=== PATIENT | male | born 1950 | race Hispanic/Latino ===

== ENCOUNTER 2017-03-07 10:51 | Day surgery (SDC) | payer MEDICARE, OTHER ==
[2017-03-07 11:03] VITALS: BMI 31.1
[2017-03-07 11:27] LABS: BASO % 0.5 % (0.0-2.0); EOS # 0.2 K/uL (0.0-0.7); EOS % 1.8 % (0.0-4.0); HEMATOCRIT 43.1 % (35.0-51.0); LYMPH # 1.7 K/uL (1.0-4.3); MEAN CELL VOLUME 101.8 fL (80.0-94.0); MEAN CORPUSCULAR HEMOGLOBIN 33.8 pg (27.0-31.0); MEAN CORPUSCULAR HGB CONC 33.2 g/dL (33.0-37.0); MEAN PLATELET VOLUME 8.3 fL (7.2-11.7); MONO # 0.7 K/uL (0.0-0.8); MONO % 7.1 % (0.0-10.0); RED CELL DISTRIBUTION WIDTH 16.1 % (11.5-14.5); WHITE BLOOD COUNT 9.9 K/uL (4.8-10.8)
[2017-03-07 11:32] LABS: CHLORIDE 103 mmol/L (98-107)
[2017-03-07 11:33] LABS: POTASSIUM 3.6 mmol/L (3.6-5.2); SODIUM 136 mmol/L (132-148)
[2017-03-07 11:35] LABS: GFR AFRICAN-AMERICAN > 60
[2017-03-07 11:36] LABS: BLOOD UREA NITROGEN 9 mg/dL (9-20); CALCIUM 8.6 mg/dl (8.6-10.4); CARBON DIOXIDE 24 mmol/L (22-30); GLUCOSE,RANDOM 100 mg/dL (75-110)
[2017-03-07 11:52] VITALS: RESP 18
[2017-03-07] MEDS ORDERED: Propofol 10 mg/ml Inj (20 ML) ONE (13:50)
[2017-03-07] MEDS ORDERED: Midazolam 2 MG/2 ML VIAL ONE (14:00)
[2017-03-07] MEDS ORDERED: Lidocaine 2% Inj (20ml) ONE (14:05)
--- NOTE | 2017-03-07 14:43 | CP.PCM.PN ---
Subjective - Date & Time of Evaluation Date of Evaluation: 03/07/17 Time of Evaluation: 14:43 - Subjective Subjective: procedure cancelled equipment issues Objective - Vital Signs/Intake and Output Vital Signs (last 24 hours): Temp Pulse Resp BP Pulse Ox 98.5 F 63 18 165/85 H 98 03/07/17 11:26 03/07/17 11:26 03/07/17 11:26 03/07/17 11:26 03/07/17 11:26 - Labs Labs: 03/07/17 11:21 03/07/17 11:21 PT 11.9 SECONDS (9.7-12.2) 03/07/17 11:21 INR 1.0 03/07/17 11:21 APTT 32 SECONDS (21-34) 03/07/17 11:21
[2017-03-07] MEDS ORDERED: Sodium Chloride 0.9% 1,000 ML IV ONE (15:30)
[2017-03-07 16:16] VITALS: BP 150/90; PULSE 60; TEMP 97; O2SAT 100
--- NOTE | 2017-03-08 18:39 | CARD ---
APPROVED REPORT EKG Measurement Heart [id number] <Conclusion> Sinus bradycardia Rightward axis Borderline ECG
== END 2017-03-07 16:19 | disposition home or self-care (01) ==
LOC: C.SPRAD 10:51
PROVIDERS: ATTEND Surgery Vascular Surgery
DX: Z53.8 Procedure and treatment not carried out for other reasons (principal)
CPT/HCPCS: 36415; 80048; 85025; 85610; 85730; J1644; J2250; J2704; J7040

== ENCOUNTER 2018-08-15 19:29 | Inpatient (IN) | payer MEDICARE, OTHER ==
[2018-08-15 19:29] VITALS: BMI 31.1
[2018-08-15] MEDS ORDERED: Pantoprazole 80 MG in Sodium Chloride 0.9% 100 ML IV STA (19:51)
[2018-08-15] MEDS ORDERED: Sodium Chloride 0.9% 1,000 ML IV ONE (19:51)
--- NOTE | 2018-08-15 19:51 | C.PDOC ---
History Of Present Illness Patient was brought by ems for shortness of breath. Pt is with metastatic colon cancer. In the ed pt was apneic. Pt was intubated for respiratory failure as well as airway protection. Pt's sons at bedside and are aware of the poor prognosis Time Seen by Provider: 08/15/18 19:50 Chief Complaint (Nursing): Abdominal Pain History Per: EMS, Family History/Exam Limitations: no limitations Onset/Duration Of Symptoms: Hrs Current Symptoms Are (Timing): Worse Context: Other Severity: Severe Pain Scale Rating Of: 10 Location Of Pain/Discomfort: Diffuse Quality Of Discomfort: Unable To Describe Associated Symptoms: Vomiting (coffee grounds) Exacerbating Factors: None Alleviating Factors: None Last Bowel Movement: Today Recent travel outside of the [place]: No Additional History Per: EMS, Family Past Medical History Reviewed: Historical Data, Nursing Documentation, Vital Signs Vital Signs: Last Vital Signs Temp Pulse 57 L 08/15/18 19:38 Resp 18 08/15/18 19:38 BP Pulse Ox 96 08/15/18 19:38 - Medical History PMH: Colonic Polyps, HTN Denies: Anxiety, Chronic Kidney Disease Surgical History: Coronary Stent (1997) - ab&jb properties and services Procedures DESTRUCT PERITONEAL TISS (09/02/14) DRAINAGE OF RECTUM, OPEN APPROACH (03/17/16) OPEN AND OTHER RIGHT HEMICOLECTOMY (09/02/14) OPEN BIOPSY OF LIVER (09/02/14) PLICATION OF VENA CAVA (09/02/14) Family History: States: No Known Family Hx - Social History Hx Tobacco Use: No Hx Alcohol Use: Yes (STOPPED 4 YEARS AGO) Hx Substance Use: No - Immunization History Hx Influenza Vaccination: Yes Review Of Systems Review Of Systems: ROS cannot be obtained secondary to pt's inabilty to answer questions. Physical Exam - Physical Exam Appears: In Acute Distress (apneic) Skin: Dry, Pale Head: Normacephalic Eye(s): bilateral: Normal Inspection Neck: Supple Chest: Symmetrical Cardiovascular: Rhythm Regular Respiratory: Other (apneic) Gastrointestinal/Abdominal: Soft, No Tenderness, Distention, Hernia Rectal: Heme Positive, Other (black) Back: Normal Inspection Extremity: No Pedal Edema Extremity: Bilateral: Atraumatic Neurological/Psych: Other (intubated) Gait: Unable To Assess ED Course And Treatment - Laboratory Results Result Diagrams: 08/15/18 20:01 08/15/18 20:01 ECG: Interpreted By Me, Viewed By Me ECG Rhythm: Sinus Rhythm (101), R BBB, Nonspecific Changes (Lahb) O2 Sat by Pulse Oximetry: 96 Pulse Ox Interpretation: Normal - Radiology CXR: Interpreted by Me, Viewed By Me CXR Interpretation: Yes: Other (ett in place). No: Infiltrates, Fracture, Pnemothorax Progress Note: see code sheet. spoke with the family about the poor prognosis Critical Care Time - Critical Care Note Total Time (in mins): 40 Documented critical care: time excludes all time spent performing seperately billable procedures. Endotracheal Intubation - Endotracheal Intubation Intubated With ETT Size: 75 Blade Type Used: Curved Indication: Respiratory Failure, Airway Protection Intubated: Orally Pre-Intubation Airway Assessment: Ventilated And Oxygenated Post-Intubation Assessment: ETT Secured AT (cm): (25), Breath Sounds Equal Bilat, Placement Confirmed Via CXR, Color Change W/End Tidal CO2 Detector, Oxygen Saturation: (97) Disposition Discussed With : Marc Patel Comment: accepted the pt on his service and took over the care at 9:14 PM Doctor Will See Patient In The: ED Counseled Patient/Family Regarding: Studies Performed, Diagnosis - Disposition Disposition: HOSPITALIZED Disposition Time: 19:50 Condition: CRITICAL - POA Present On Arrival: Poor Glycemic Control - Clinical Impression Clinical Impression: Colon cancer, GI bleed, Respiratory failure, Severe anemia Decision To Admit - . Patient Diagnosis: Colon cancer, GI bleed, Respiratory failure, Severe anemia
[2018-08-15] MEDS ORDERED: Sodium Chloride 0.9% 2,000 ML ONE (19:54)
[2018-08-15] MEDS ORDERED: Pantoprazole 80 MG in Sodium Chloride 0.9% 100 ML IV ONE (20:00)
[2018-08-15 20:08] LABS: BASO # 0.1 K/uL (0.0-0.2); BASO % 0.7 % (0.0-2.0); EOS % 0.1 % (0.0-4.0); LYMPH # 4.8 K/uL (1.0-4.3); LYMPH % 68.3 % (20.0-40.0); MEAN CORPUSCULAR HGB CONC 29.8 g/dL (33.0-37.0); MEAN PLATELET VOLUME 10.1 fL (7.2-11.7); MONO % 0.6 % (0.0-10.0); NEUT # 2.1 K/uL (1.8-7.0); NEUT % 30.3 % (50.0-75.0); NRBC % 0.2 % (0.0-2.0); RBC 1.24 Mil/uL (4.40-5.90); RED CELL DISTRIBUTION WIDTH 20.4 % (11.5-14.5); WHITE BLOOD COUNT 7.1 K/uL (4.8-10.8)
[2018-08-15 20:13] LABS: INR 1.8; PROTHROMBIN TIME 19.4 SECONDS (9.7-12.2)
[2018-08-15 20:14] LABS: MEAN CELL VOLUME 107.6 fL (80.0-94.0)
[2018-08-15] MEDS ORDERED: Pantoprazole 80 MG in Sodium Chloride 0.9% 100 ML IVP SCH (20:15)
[2018-08-15 20:24] LABS: ALB/GLOB RATIO 0.9 (1.0-2.1); ALBUMIN 1.8 g/dL (3.5-5.0)
[2018-08-15] MEDS ORDERED: DOPamine 400mg/250ml D5W 400 MG/250 ML BAG IV ONE (20:25)
[2018-08-15] MEDS: DOPamine 400mg/250ml D5W 400 MG/250 ML BAG IV PRN (20:28)
[2018-08-15] MEDS ORDERED: Pantoprazole 80 MG in Sodium Chloride 0.9% 100 ML IVPB SCH (20:30)
[2018-08-15 22:12] LABS: VENOUS BLOOD GAS PCO2 32 mmHg (40-60); VENOUS BLOOD GAS PO2 36 mm/Hg (30-55); VENOUS BLOOD PH 6.93 (7.32-7.43)
[2018-08-15] MEDS ORDERED: Sodium Bicarbonate (8.4%) 50 Meq Syringe ONE ×3 (22:38→23:52)
[2018-08-15] MEDS ORDERED: Sodium Bicarbonate (8.4%) 50 Meq Syringe IVP ONE (22:45)
[2018-08-15 23:22] VITALS: TEMP 96
--- NOTE | 2018-08-16 00:42 | CP.PCM.CON ---
History of Present Illness - History of Present Illness History of Present Illness: 68 M with h/o colon cancer diagnosed about 4 yrs back, s/p hemicolectomy, then recurrence, on chemo with mets, patient c/o not feeling well at home yesterday since morning, in the evening suddenly felt sick and syncopised at home. Patient had black stool in ambulance, he was intubated in ER for agonal breathing, and noticed to have black vomit. Hemoglobin was 4, blood + in NG lavage. Patient coded in ER post intubation for about 7 mins, then twice in ICU, being resuscitated with prbc, ffp, and platelet ordered. PMH as above Allergies contrast dye needs prep before dye Family history not contributory Social history not contributory Meds reviewed. Review of Systems - Review of Systems All systems: reviewed and no additional remarkable complaints except (HPI) Past Patient History - Infectious Disease Hx of Infectious Diseases: None - Tetanus Immunizations Tetanus Immunization: Unknown - Past Medical History & Family History Past Medical History?: Yes - Past Social History Smoking Status: Heavy Smoker > 10 Cigarettes Daily Home Situation {Lives}: With Family - CARDIAC Hx Hypertension: Yes - PULMONARY Hx Respiratory Disorders: No - NEUROLOGICAL Hx Neurological Disorder: No - HEENT Hx HEENT Problems: Yes Other/Comment: sinus problems - RENAL Hx Chronic Kidney Disease: No - ENDOCRINE/METABOLIC Hx Endocrine Disorders: No - HEMATOLOGICAL/ONCOLOGICAL Hx Blood Disorders: No Hx Cancer: Yes (colon cancer malignant to liver) Hx Chemotherapy: Yes Hx Cirrhosis: No Hx Hepatitis A: No Hx Hepatitis B: No Hx Hepatitis C: No Other/Comment: last chemo tx on march 03, 2016. end stage live [place] - INTEGUMENTARY Hx Dermatological Problems: No - MUSCULOSKELETAL/RHEUMATOLOGICAL Hx Musculoskeletal Disorders: No - GASTROINTESTINAL Hx Gastrointestinal Disorders: Yes Hx Bowel Surgery: Yes (aug 2014) Other/Comment: colon cancer resection by Dr. Alvarado 2013 - GENITOURINARY/GYNECOLOGICAL Hx Genitourinary Disorders: No - PSYCHIATRIC Hx Anxiety: No Hx Substance Use: No - SURGICAL HISTORY Hx Coronary Stent: Yes (1997) - ANESTHESIA Hx Anesthesia: Yes Hx Anesthesia Reactions: No Hx Malignant Hyperthermia: No Meds Allergies/Adverse Reactions: Allergies Allergy/AdvReac Type Severity Reaction Status Date / Time Iodinated Contrast- Oral and Allergy Intermediate RASH Verified 08/15/18 19:37 IV Dye [Iodinated Contrast Media - Oral and] iodine Allergy RASH Verified 08/15/18 19:37 fexofenadine HCl AdvReac ANAPHYLAXIS Verified 08/15/18 19:37 [From Em] rosuvastatin calcium AdvReac SHORTNESS Verified 08/15/18 19:37 [From Crestor] OF BREATH - Medications Medications: Current Medications Pantoprazole Sodium 80 mg/ (Sodium Chloride) 100 mls @ 10 mls/hr IVPB .Q10H SEPIDEH Last Admin: 08/15/18 20:17 Dose: 10 mls/hr Dopamine HCl/Dextrose (Dopamine 400mg/250ml D5w) 400 mg in 250 mls @ 61.235 mls/hr IV .Q4H5M PRN PRN Reason: TITRATE PER MD ORDER Last Admin: 08/15/18 20:28 Dose: 61.235 mls/hr Physical Exam - Additional Findings Additional findings: HEENT pupils dilated, no corneal reflex Neck supple Chest Clear, b/l CVS tachycardia, regular PA soft, mild distension Ext no edema Skin cold 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 Results - Vital Signs Recent Vital Signs: Last Vital Signs Temp 96 F L 08/15/18 22:05 Pulse 111 H 08/15/18 22:05 Resp 26 H 08/15/18 22:05 BP 136/45 L 08/15/18 22:05 Pulse Ox 96 08/15/18 22:16 - Labs Result Diagrams: 08/15/18 20:01 08/15/18 20:01 Labs: Laboratory Results - last 24 hr 08/15/18 08/15/18 08/15/18 20:01 20:01 20:01 WBC 7.1 RBC 1.24 L Hgb 4.0 L* D Hct 13.4 L MCV 107.6 H D MCH 32.0 H MCHC 29.8 L RDW 20.4 H Plt Count 71 L D MPV 10.1 Neut % (Auto) 30.3 L Lymph % (Auto) 68.3 H [place] % (Auto) 0.6 Eos % (Auto) 0.1 Baso % (Auto) 0.7 Neut # (Auto) 2.1 Lymph # (Auto) 4.8 H [place] # (Auto) 0.0 Eos # (Auto) 0.0 Baso # (Auto) 0.1 Differential Comment PT 19.4 H INR 1.8 APTT 38 H pO2 VBG pH VBG pCO2 VBG HCO3 VBG Total CO2 VBG O2 Sat (Calc) VBG Base Excess VBG Potassium Glucose Lactate Crit Value Called To Crit Value Called By Crit Value Read Back Blood Gas Notified Time Sodium 144 Potassium 5.5 H Chloride 111 H Carbon Dioxide 7 L* D Anion Gap 32 H BUN 65 H Creatinine 1.9 H Est GFR ( Amer) 43 Est GFR (Non-Af Amer) 35 Random Glucose 182 H Calcium 8.0 L Total Bilirubin 0.3 AST 66 H ALT 58 Alkaline Phosphatase 107 Total Protein 3.6 L Albumin 1.8 L D Globulin 1.9 L Albumin/Globulin Ratio 0.9 L Venous Blood Potassium Stool Occult Blood Blood Type Antibody Screen 08/15/18 08/15/18 08/15/18 20:05 20:23 22:08 WBC RBC Hgb Hct MCV MCH MCHC RDW Plt Count MPV Neut % (Auto) Lymph % (Auto) [place] % (Auto) Eos % (Auto) Baso % (Auto) Neut # (Auto) Lymph # (Auto) [place] # (Auto) Eos # (Auto) Baso # (Auto) Differential Comment PT INR APTT pO2 36 VBG pH 6.93 L* VBG pCO2 32 L VBG HCO3 3.7 VBG Total CO2 7.7 L VBG O2 Sat (Calc) 58.5 VBG Base Excess -25.0 L VBG Potassium 6.0 H Glucose 208 H Lactate 16.1 H* Crit Value Called To Trice vigil rn Crit Value Called By Jayce Crit Value Read Back Y Blood Gas Notified Time 2211 Sodium 137.0 Potassium Chloride 111.0 H Carbon Dioxide Anion Gap BUN Creatinine Est GFR ( Amer) Est GFR (Non-Af Amer) Random Glucose Calcium Total Bilirubin AST ALT Alkaline Phosphatase Total Protein Albumin Globulin Albumin/Globulin Ratio Venous Blood Potassium 6.0 H Stool Occult Blood Positive H Blood Type A POSITIVE Antibody Screen Negative Assessment & Plan - Assessment and Plan (Free Text) Assessment: Assessment UGI, bleed, hemorrhagic shock Cardiac arrest due to above H/o colonic cancer with wide spread mets Plan: * PPI * Resuscitation, prbc, ffp, platelet * Bicarb as needed * D/w family about grave prognosis, family considering DNR, but have not decided yet. * See orders for detail.
[2018-08-16] MEDS: DOPamine 400mg/250ml D5W 400 MG/250 ML BAG IV PRN (01:00)
[2018-08-16] MEDS ORDERED: Sodium Bicarbonate (8.4%) 50 Meq Syringe IVP SCH (02:44)
[2018-08-16] MEDS ORDERED: Sodium Bicarbonate (8.4%) 50 mEq Vial ONE (03:33)
[2018-08-16] MEDS ORDERED: CALCIUM CHLORIDE 100 MG/ML VIAL IV ONE (03:33)
[2018-08-16] MEDS ORDERED: DOPamine 400 mg/5 ml Inj IV ONE (03:33)
--- NOTE | 2018-08-16 03:44 | CP.PCM.PRO ---
Pronouncement of Note - Clinical Findings Physical Exam: No Response Verbal/Painful Stimuli, Absent Peripheral Puls es{Carotid & Femoral}, Absent Heart & Breath Sounds, No Pupillary Light Reflex, No Corneal Reflex, Pupils Fixed & Dilated, Absence of Vital Signs - Pronouncement Time Time of Pronouncement of : 03:33 (am) - Notifications Pronouncement Notifications: Family Notified, Atending Notified (being notified by nursing) Director Learning And Development Notified: Yes - [place]: [id number] Additional Comments: Patient arrested x5 times, multiple round of epi, bicarb, received 5 units prbc, 3 units ffp, was on sandostatin, protonix and dopamine drip. at the 5th arrest son requested to stop which was stopped at 18 mins. Please see the details of each arrest in the code sheets, prepared during the code. Cause of is massive UGI bleeding, hemorrhagic shock.
--- NOTE | 2018-08-16 07:43 | RAD ---
Date of service: 08/15/2018 PROCEDURE: CHEST RADIOGRAPH, 1 VIEW HISTORY: GI Bleeding COMPARISON: Portable chest 03/17/2016. FINDINGS: LUNGS: Right MediPort unchanged in position. Endotracheal tube is in place with the tip terminating approximately 2 cm above the fide. Multiple small nodular densities are identified at the upper and mid to inferior right lung zones in the interval for which follow-up chest CT is recommended. Medial left chest somewhat obscured by radiodense changes related to external pacemaker. No definite acute infiltrate appreciated bilaterally. PLEURA: No pneumothorax or pleural fluid seen. CARDIOVASCULAR: No thoracic aortic calcified atherosclerosis appreciated. Cardiac size appears normal. No pulmonary vascular congestion. OSSEOUS STRUCTURES: No significant abnormalities. VISUALIZED UPPER ABDOMEN: Normal. OTHER FINDINGS: None. IMPRESSION: 1. Multiple right pulmonary nodules are identified for which follow-up chest is advised for additional characterization. No acute infiltrate identified bilaterally. 2. Endotracheal tube terminates at lower trachea as discussed above. MediPort reiterated in position right chest. 3. No pulmonary vascular congestion.
[2018-08-16 10:47] VITALS: PULSE 54
[2018-08-16 10:51] VITALS: BP 60/30
[2018-08-16 11:31] VITALS: RESP 16; O2SAT 100
--- NOTE | 2018-08-16 14:30 | CP.PCM.HP ---
History of Present Illness - History of Present Illness History of Present Illness: this is a post expiratory note. According to the patient's patient was apparently all right in the morning of the admission and then started complaining of shortness of breath and after that patient passed out. Patient had then black tarry stools and black blackish vomitus. Paramedics were called patient was brought to the emergency room and subsequently patient coded and was intubated. Patient was resuscitated with RBCs fresh frozen plasma IV fluids but continued to have 3 or 4 cardiorespiratory arrest. GI evaluation was called and the opinion was that the currently the patient is very high risk for endoscopy and to resuscitated with volume. After multiple attempts on volume resuscitation patient did not regain his blood pressure and patient was pronounced in the early part of August 17, 2018 Present on Admission - Present on Admission Any Indicators Present on Admission: No Past Patient History - Infectious Disease Hx of Infectious Diseases: None - Tetanus Immunizations Tetanus Immunization: Unknown - Past Medical History & Family History Past Medical History?: Yes - Past Social History Smoking Status: Heavy Smoker > 10 Cigarettes Daily Home Situation {Lives}: With Family - CARDIAC Hx Hypertension: Yes - PULMONARY Hx Respiratory Disorders: No - NEUROLOGICAL Hx Neurological Disorder: No - HEENT Hx HEENT Problems: Yes Other/Comment: sinus problems - RENAL Hx Chronic Kidney Disease: No - ENDOCRINE/METABOLIC Hx Endocrine Disorders: No - HEMATOLOGICAL/ONCOLOGICAL Hx Blood Disorders: No Hx Cancer: Yes (colon cancer malignant to liver) Hx Chemotherapy: Yes Hx Cirrhosis: No Hx Hepatitis A: No Hx Hepatitis B: No Hx Hepatitis C: No Other/Comment: last chemo tx on march 03, 2016. end stage live [place] - INTEGUMENTARY Hx Dermatological Problems: No - MUSCULOSKELETAL/RHEUMATOLOGICAL Hx Musculoskeletal Disorders: No - GASTROINTESTINAL Hx Gastrointestinal Disorders: Yes Hx Bowel Surgery: Yes (aug 2014) Other/Comment: colon cancer resection by Dr. Alvarado 2013 - GENITOURINARY/GYNECOLOGICAL Hx Genitourinary Disorders: No - PSYCHIATRIC Hx Anxiety: No Hx Substance Use: No - SURGICAL HISTORY Hx Coronary Stent: Yes (1997) - ANESTHESIA Hx Anesthesia: Yes Hx Anesthesia Reactions: No Hx Malignant Hyperthermia: No Meds Allergies/Adverse Reactions: Allergies Allergy/AdvReac Type Severity Reaction Status Date / Time Iodinated Contrast- Oral and Allergy Intermediate RASH Verified 08/15/18 19:37 IV Dye [Iodinated Contrast Media - Oral and] iodine Allergy RASH Verified 08/15/18 19:37 fexofenadine HCl AdvReac ANAPHYLAXIS Verified 08/15/18 19:37 [From Em] rosuvastatin calcium AdvReac SHORTNESS Verified 08/15/18 19:37 [From Crestor] OF BREATH Results - Vital Signs Recent Vital Signs: Last Vital Signs Temp 96 F L 08/15/18 22:22 Pulse 26 L 08/16/18 01:00 Resp 16 08/15/18 22:22 BP 60/30 L 08/16/18 01:00 Pulse Ox 100 08/15/18 22:22 - Labs Result Diagrams: 08/15/18 20:01 08/15/18 20:01 Labs: Laboratory Results - last 24 hr 08/15/18 08/15/18 08/15/18 20:01 20:01 20:01 WBC 7.1 RBC 1.24 L Hgb 4.0 L* D Hct 13.4 L MCV 107.6 H D MCH 32.0 H MCHC 29.8 L RDW 20.4 H Plt Count 71 L D MPV 10.1 Neut % (Auto) 30.3 L Lymph % (Auto) 68.3 H [place] % (Auto) 0.6 Eos % (Auto) 0.1 Baso % (Auto) 0.7 Neut # (Auto) 2.1 Lymph # (Auto) 4.8 H [place] # (Auto) 0.0 Eos # (Auto) 0.0 Baso # (Auto) 0.1 Differential Comment Smear Path Review PT 19.4 H INR 1.8 APTT 38 H pO2 VBG pH VBG pCO2 VBG HCO3 VBG Total CO2 VBG O2 Sat (Calc) VBG Base Excess VBG Potassium Glucose Lactate Crit Value Called To Crit Value Called By Crit Value Read Back Blood Gas Notified Time Sodium 144 Potassium 5.5 H Chloride 111 H Carbon Dioxide 7 L* D Anion Gap 32 H BUN 65 H Creatinine 1.9 H Est GFR ( Amer) 43 Est GFR (Non-Af Amer) 35 POC Glucose (mg/dL) Random Glucose 182 H Calcium 8.0 L Total Bilirubin 0.3 AST 66 H ALT 58 Alkaline Phosphatase 107 Total Protein 3.6 L Albumin 1.8 L D Globulin 1.9 L Albumin/Globulin Ratio 0.9 L Venous Blood Potassium Stool Occult Blood Blood Type Antibody Screen 08/15/18 08/15/18 08/15/18 20:02 20:05 20:23 WBC RBC Hgb Hct MCV MCH MCHC RDW Plt Count MPV Neut % (Auto) Lymph % (Auto) [place] % (Auto) Eos % (Auto) Baso % (Auto) Neut # (Auto) Lymph # (Auto) [place] # (Auto) Eos # (Auto) Baso # (Auto) Differential Comment Smear Path Review PT INR APTT pO2 VBG pH VBG pCO2 VBG HCO3 VBG Total CO2 VBG O2 Sat (Calc) VBG Base Excess VBG Potassium Glucose Lactate Crit Value Called To Crit Value Called By Crit Value Read Back Blood Gas Notified Time Sodium Potassium Chloride Carbon Dioxide Anion Gap BUN Creatinine Est GFR ( Amer) Est GFR (Non-Af Amer) POC Glucose (mg/dL) 122 H Random Glucose Calcium Total Bilirubin AST ALT Alkaline Phosphatase Total Protein Albumin Globulin Albumin/Globulin Ratio Venous Blood Potassium Stool Occult Blood Positive H Blood Type A POSITIVE Antibody Screen Negative 08/15/18 22:08 WBC RBC Hgb Hct MCV MCH MCHC RDW Plt Count MPV Neut % (Auto) Lymph % (Auto) [place] % (Auto) Eos % (Auto) Baso % (Auto) Neut # (Auto) Lymph # (Auto) [place] # (Auto) Eos # (Auto) Baso # (Auto) Differential Comment Smear Path Review PT INR APTT pO2 36 VBG pH 6.93 L* VBG pCO2 32 L VBG HCO3 3.7 VBG Total CO2 7.7 L VBG O2 Sat (Calc) 58.5 VBG Base Excess -25.0 L VBG Potassium 6.0 H Glucose 208 H Lactate 16.1 H* Crit Value Called To Trice vigil rn Crit Value Called By Jayce Crit Value Read Back Y Blood Gas Notified Time 2211 Sodium 137.0 Potassium Chloride 111.0 H Carbon Dioxide Anion Gap BUN Creatinine Est GFR ( Amer) Est GFR (Non-Af Amer) POC Glucose (mg/dL) Random Glucose Calcium Total Bilirubin AST ALT Alkaline Phosphatase Total Protein Albumin Globulin Albumin/Globulin Ratio Venous Blood Potassium 6.0 H Stool Occult Blood Blood Type Antibody Screen
--- NOTE | 2018-08-16 14:32 | CP.PCM.DIS ---
Provider - Provider Date of Admission: 08/15/18 21:12 Attending physician: Marc Patel MD Time Spent in preparation of Discharge (in minutes): 36 Hospital Course - Lab Results Lab Results: Micro Results 08/16/18 06:37 Nose MRSA Culture (Admit) - Final MRSA NOT DETECTED Most Recent Lab Values WBC 7.1 K/uL (4.8-10.8) 08/15/18 20:01 RBC 1.24 Mil/uL (4.40-5.90) L 08/15/18 20:01 Hgb 4.0 g/dL (12.0-18.0) L* D 08/15/18 20:01 Hct 13.4 % (35.0-51.0) L 08/15/18 20:01 MCV 107.6 fL (80.0-94.0) H D 08/15/18 20:01 MCH 32.0 pg (27.0-31.0) H 08/15/18 20:01 MCHC 29.8 g/dL (33.0-37.0) L 08/15/18 20:01 RDW 20.4 % (11.5-14.5) H 08/15/18 20:01 Plt Count 71 K/uL (130-400) L D 08/15/18 20:01 MPV 10.1 fL (7.2-11.7) 08/15/18 20:01 Neut % (Auto) 30.3 % (50.0-75.0) L 08/15/18 20: Lymph % (Auto) 68.3 % (20.0-40.0) H 08/15/18 20:01 Carbon % (Auto) 0.6 % (0.0-10.0) 08/15/18 20:01 Eos % (Auto) 0.1 % (0.0-4.0) 08/15/18 20:01 Baso % (Auto) 0.7 % (0.0-2.0) 08/15/18 20:01 Neut # (Auto) 2.1 K/uL (1.8-7.0) 08/15/18 20:01 Lymph # (Auto) 4.8 K/uL (1.0-4.3) H 08/15/18 20:01 Carbon # (Auto) 0.0 K/uL (0.0-0.8) 08/15/18 20:01 Eos # (Auto) 0.0 K/uL (0.0-0.7) 08/15/18 20:01 Baso # (Auto) 0.1 K/uL (0.0-0.2) 08/15/18 20:01 Differential Comment 08/15/18 20:01 Smear Path Review 08/15/18 20:01 PT 19.4 SECONDS (9.7-12.2) H 08/15/18 20:01 INR 1.8 08/15/18 20:01 APTT 38 SECONDS (21-34) H 08/15/18 20:01 pO2 36 mm/Hg (30-55) 08/15/18 22:08 VBG pH 6.93 (7.32-7.43) L* 08/15/18 22:08 VBG pCO2 32 mmHg (40-60) L 08/15/18 22:08 VBG HCO3 3.7 mmol/L 08/15/18 22:08 VBG Total CO2 7.7 mmol/L (22-28) L 08/15/18 22:08 VBG O2 Sat (Calc) 58.5 % (40-65) 08/15/18 22:08 VBG Base Excess -25.0 mmol/L (0.0-2.0) L 08/15/18 22:08 VBG Potassium 6.0 mmol/L (3.6-5.2) H 08/15/18 22:08 Sodium 137.0 mmol/l (132-148) 08/15/18 22:08 Chloride 111.0 mmol/L (98-107) H 08/15/18 22:08 Glucose 208 mg/dl (75-110) H 08/15/18 22:08 Lactate 16.1 mmol/L (0.7-2.1) H* 08/15/18 22:08 Crit Value Called To Trice vigil rn 08/15/18 22:08 Crit Value Called By Jayce 08/15/18 22:08 Crit Value Read Back Y 08/15/18 22:08 Blood Gas Notified Time 221008/15/18 22:08 Sodium 144 mmol/L (132-148) 08/15/18 20:01 Potassium 5.5 mmol/L (3.6-5.2) H 08/15/18 20: Chloride 111 mmol/L (98-107) H 08/15/18 20: Carbon Dioxide 7 mmol/L (22-30) L* D 08/15/18 20: Anion Gap 32 (10-20) H 08/15/18 20:01 BUN 65 mg/dL (9-20) H 08/15/18 20: Creatinine 1.9 mg/dL (0.8-1.5) H 08/15/18 20:01 Est GFR ( Amer) 43 08/15/18 20: Est GFR (Non-Af Amer) 35 08/15/18 20:01 POC Glucose (mg/dL) 122 mg/dL (65-110) H 08/15/18 20:02 Random Glucose 182 mg/dL (75-110) H 08/15/18 20: Calcium 8.0 mg/dl (8.6-10.4) L 08/15/18 20: Total Bilirubin 0.3 mg/dL (0.2-1.3) 08/15/18 20: AST 66 U/L (17-59) H 08/15/18 20: ALT 58 U/L (21-72) 08/15/18 20: Alkaline Phosphatase 107 U/L (38-126) 08/15/18 20: Total Protein 3.6 g/dL (6.3-8.3) L 08/15/18 20: Albumin 1.8 g/dL (3.5-5.0) L D 08/15/18 20: Globulin 1.9 gm/dL (2.2-3.9) L 08/15/18 20: Albumin/Globulin Ratio 0.9 (1.0-2.1) L 08/15/18 20: Venous Blood Potassium 6.0 mmol/L (3.6-5.2) H 08/15/18 22:08 Stool Occult Blood Positive (NEGATIVE) H 08/15/18 20:23 Blood Type A POSITIVE 08/15/18: Antibody Screen Negative 08/15/18: - Hospital Course Hospital Course: patient was admitted after a massive GI bleed with hypotension and respiratory arrest patient coded 3 or 4 times in the hospital and was unable to be resuscitated with multiple IV fluids fresh frozen plasma and packed blood cells. Endoscopy was not possible because of the high risk. Patient presented with a hemoglobin of 4 g with severe metabolic acidosis In spite of aggressive resuscitation patient succumbed to hypotension and was pronounced on early part of the morning of August 17, 2018 Discharge Plan - Follow Up Plan Condition: CRITICAL Disposition: WITH WITHOUT AUTOPSY
--- NOTE | 2018-08-16 19:36 | CARD ---
APPROVED REPORT Date of service: 08/15/2018 EKG Measurement Heart [id number] <Conclusion> A Fib with RVR ST & T wave abnormality, consider inferolateral ischemia Abnormal ECG
--- NOTE | 2018-08-16 19:38 | CARD ---
APPROVED REPORT Date of service: 08/15/2018 EKG Measurement Heart [id number] <Conclusion> Consider Junctional Tachycardia Right bundle branch block Left anterior fascicular block Bifascicular block Possible Infero-Lateral infarct, age undetermined Abnormal ECG
== END 2018-08-16 03:33 | DRG 208 ==
LOC: C.ER 19:29 → C.9I 21:12
PROVIDERS: ADMIT Internal Medicine Cardiovascular Disease; ATTEND Internal Medicine Cardiovascular Disease
PROC: 5A1935Z Respiratory Ventilation, Less than 24 Consecutive Hours (ICD-10-PCS; principal; 2018-08-15)
PROC: 0BH17EZ Insertion of Endotracheal Airway into Trachea, Via Natural or Artificial Opening (ICD-10-PCS; 2018-08-15)
PROC: 30233K1 Transfusion of Nonautologous Frozen Plasma into Peripheral Vein, Percutaneous Approach (ICD-10-PCS; 2018-08-15)
PROC: 30233N1 Transfusion of Nonautologous Red Blood Cells into Peripheral Vein, Percutaneous Approach (ICD-10-PCS; 2018-08-15)
PROC: 30233R1 Transfusion of Nonautologous Platelets into Peripheral Vein, Percutaneous Approach (ICD-10-PCS; 2018-08-15)
PROC: 5A12012 Performance of Cardiac Output, Single, Manual (ICD-10-PCS; 2018-08-15)
DX: J96.90 Respiratory failure, unspecified, unspecified whether with hypoxia or hypercapnia (principal); K92.2 Gastrointestinal hemorrhage, unspecified; R57.8 Other shock; I46.8 Cardiac arrest due to other underlying condition; E87.2 Acidosis; C78.7 Secondary malignant neoplasm of liver and intrahepatic bile duct; D64.9 Anemia, unspecified; I10 Essential (primary) hypertension; Z85.038 Personal history of other malignant neoplasm of large intestine; Z90.49 Acquired absence of other specified parts of digestive tract; Z95.5 Presence of coronary angioplasty implant and graft; Z86.010 Personal history of colon polyps; Z91.041 Radiographic dye allergy status